=== PATIENT | male | born 1950 | race Caucasian/White ===

== ENCOUNTER 2016-10-12 19:00 | Inpatient (IN) | payer OTHER ==
[~2016-10-12] VITALS: Ht 170.2 cm; Wt 73.2 kg
[2016-10-12 20:11] LABS: MCH 32.7 PG (29.0-34.0); MCHC 34.2 G/DL (30.0-36.0); MCV 95.8 FL (86-99); MEAN PLAT.VOLUME 9.8 uM^3 (9.0-12.4); PLATELET COUNT 182 K/uL (156-360); RBC DIS.WIDTH-CV 12.2 % (11.8-14.6); RBC DIS.WIDTH-SD 41.6 % (39-53); RED BLOOD COUNT 4.49 M/uL (4.00-5.50); WHITE BLOOD COUNT 11.6 K/uL (4.1-10.2)
[2016-10-12 20:16] LABS: CHLORIDE 112 mEq/L (99-109); POTASSIUM 4.4 mEq/L (3.7-5.4); SODIUM 142 mEq/L (136-147)
[2016-10-12 20:18] LABS: GLUCOSE 120 mg/dL (70-99)
[2016-10-12 20:19] LABS: ANION GAP 10 MEQ/L (2-14)
[2016-10-12 20:22] LABS: GFR ESTIMATE (CALCULATED) > 59 mL/min/; UREA NITROGEN (BUN) 30 mg/dL (9-23)
[2016-10-12 20:27] LABS: PROTHROMBIN TIME 10.4 (9.2-11.2); PTT 27.9 (25-32)
[2016-10-12 20:28] LABS: TROP-I INTERPRETATION NEGATIVE; TROPONIN-I < 0.01 ng/mL (0.0-0.30)
[2016-10-12 21:55] LABS: ADD MIUA? NO; BILIRUBIN NEGATIVE; BLOOD NEGATIVE; COLOR YELLOW ((YELLOW)); GLUCOSE (STRIP) NEGATIVE; KETONES NEGATIVE; LEUKOCYTES NEGATIVE; NITRITE NEGATIVE; PROTEIN (STRIP) NEGATIVE; SPECIFIC GRAVITY 1.016 (1.000-1.030); UROBILINOGEN 0.2 MG/DL (0.2-1.0)
[2016-10-12] MEDS ORDERED: ZESTRIL10 MG PO (23:54)
[2016-10-12] MEDS ORDERED: LO-DOSE ASPIRIN81 M1 PO (23:55)
[2016-10-12] MEDS ORDERED: LIPITOR20 MG PO (23:55)
[2016-10-13 03:41] VITALS: BP 161/80
[2016-10-13 06:48] LABS: HDL CHOLESTEROL 40 MG/DL (Desirable>=40); LDL CHOLESTEROL 67 mg/dL (Desirable<100); NON-HDL CHOLESTEROL 81 mg/dL (Desirable<160); TOTAL CHOLESTEROL 121 mg/dL (Desirable<200); TRIGLYCERIDES 68 MG/DL (Normal: <150)
[2016-10-13 07:04] LABS: Estimated Average Glucose 117 mg/dL (70-123); HEMOGLOBIN A1c (GLYCOHEMOGLOB) 5.7 % HGB (Below 5.7)
[2016-10-13 08:32] VITALS: BP 145/79
[2016-10-13 11:53] VITALS: BP 148/81
[2016-10-13] MEDS ORDERED: IBUPROFEN400 MG PO (14:53)
== END 2016-10-13 16:05 | disposition home or self-care (01) | DRG 71 ==
LOC: EME 19:00 → EDOF 10-13 02:54 → 5SOUTH 10-13 02:54
PROVIDERS: Hospitalist; Physician Assistant
DX: G45.4 Transient global amnesia (principal); S06.0X9A Concussion with loss of consciousness of unspecified duration, initial encounter; S00.01XA Abrasion of scalp, initial encounter; S50.02XA Contusion of left elbow, initial encounter; W19.XXXA Unspecified fall, initial encounter; Y92.007 Garden or yard of unspecified non-institutional (private) residence as the place of occurrence of the external cause; I10 Essential (primary) hypertension; E78.00 Pure hypercholesterolemia, unspecified; R73.03 Prediabetes; Z87.891 Personal history of nicotine dependence
CPT/HCPCS: 70450; 70496; 70498; 70551; 71020; 80048; 80061; 81003; 83036; 84484; 85027; 85610; 85730; 93005; 95819; 99281; 99285; J1650; J7030